=== PATIENT | male | born 1985 | race African-American/Black ===

== ENCOUNTER 2017-11-16 15:13 | Emergency (ER) | payer OTHER ==
[~2017-11-16] VITALS: Ht 160 cm; Wt 70.0 kg
[2017-11-16 15:17] VITALS: TEMP 36.7; Ht 160 cm; Wt 70.0 kg
[2017-11-16] MEDS ORDERED: ONDANSETRON INJ 2 MG/ML 2 ML VIAL IV STA (15:19)
[2017-11-16] MEDS ORDERED: MoRPHine SULFATE 4 MG/ML 1 ML CARP\\VIAL IV STA (15:19)
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
[2017-11-16] MEDS ORDERED: DIPHTHERIA/TETANUS/PERTUSSIS 0.5 ML SYR/VIAL IM. ONE (17:00)
[2017-11-16 17:36] VITALS: BP 123/85; PULSE 72; O2SAT 99
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
== END 2017-11-16 17:37 | disposition home or self-care (01) ==
LOC: C.EDA 15:13
DX: S00.83XA Contusion of other part of head, initial encounter (principal); S40.811A Abrasion of right upper arm, initial encounter; S80.211A Abrasion, right knee, initial encounter; S80.212A Abrasion, left knee, initial encounter; V19.9XXA Pedal cyclist (driver) (passenger) injured in unspecified traffic accident, initial encounter; Z23 Encounter for immunization